=== PATIENT | male | born 1985 | race Caucasian/White ===

== ENCOUNTER 2016-07-02 02:12 | Inpatient (IN) | payer OTHER ==
[~2016-07-02] VITALS: Ht 177.8 cm; Wt 87.5 kg
[2016-07-02 03:28] LABS: CALCIUM 8.1 mg/dL (8.5-10.1); CARBON DIOXIDE 14.1 mmol/L (21-32); CHLORIDE SERUM 101 mmol/L (98-107); CREATININE SERUM 1.2 mg/dL (0.7-1.3); GFR1 > 60 mL/min; GLUCOSE SERUM 140 mg/dL (74-106); POTASSIUM SERUM 3.1 mmol/L (3.5-5.1); SODIUM SERUM 140 mmol/L (136-145)
[2016-07-02 03:32] LABS: ALBUMIN 3.6 g/dL (3.4-5.0); ALKALINE PHOSPHATASE 103 U/L (46-116); ALT/SGPT 95 U/L (16-63); AST/SGOT 178 U/L (15-37); BILIRUBIN TOTAL 1.1 mg/dL (0.20-1.00); MAGNESIUM 1.8 mg/dL (1.8-2.4); TOTAL PROTEIN, SERUM 6.9 g/dL (6.4-8.2)
[2016-07-02 03:53] LABS: BASOPHIL % 1.8 % (0-2); PLATELET COUNT 208 x10^3mcL (130-400); RED CELL DISTRIBUTION WIDTH 12.4 % (11.5-14.5)
[2016-07-02 04:43] LABS: AMPHETAMINE QUAL UR NONE DETECTED (NEG <=1000)
[2016-07-02 07:08] LABS: FREE THYROXINE INDEX 2.4 ug/dL (1.4-4.5); T4(THYROXINE) 6.8 ug/dL (4.7-13.3)
[2016-07-02 07:13] VITALS: BP 130/86
[2016-07-02 07:31] LABS: T3 TOTAL 1.26 ng/mL
[2016-07-02 07:52] LABS: CHOLESTEROL/HDL RATIO 1.9
[2016-07-02 07:54] LABS: microscopic required? YES; urine erythrocyte TRACE (NEGATIVE)
[2016-07-02 07:55] LABS: FREE T4 0.85 ng/dL (0.76-1.46)
[2016-07-02 10:31] LABS: PLATELET COUNT 149 x10^3mcL (130-400); RED CELL DISTRIBUTION WIDTH 13.5 % (11.5-14.5)
[2016-07-02 10:40] VITALS: BP 108/64
[2016-07-02 11:26] LABS: CALCIUM 8.1 mg/dL (8.5-10.1); CARBON DIOXIDE 24.7 mmol/L (21-32); CHLORIDE SERUM 105 mmol/L (98-107); CREATININE SERUM 0.9 mg/dL (0.7-1.3); GFR1 > 60 mL/min; GLUCOSE SERUM 97 mg/dL (74-106); MAGNESIUM 1.7 mg/dL (1.8-2.4); PHOSPHOROUS 2.5 mg/dL (2.5-4.9); POTASSIUM SERUM 3.3 mmol/L (3.5-5.1); SODIUM SERUM 139 mmol/L (136-145)
[2016-07-02 13:20] VITALS: BP 108/72
[2016-07-02 18:39] VITALS: BP 119/84
[2016-07-02 21:20] VITALS: BP 130/90
[2016-07-03 05:17] VITALS: BP 122/88
[2016-07-03 07:12] LABS: BASOPHIL % 0.5 % (0-2); PLATELET COUNT 145 x10^3mcL (130-400); RED CELL DISTRIBUTION WIDTH 13.4 % (11.5-14.5)
[2016-07-03 07:30] LABS: CALCIUM 8.3 mg/dL (8.5-10.1); CARBON DIOXIDE 24.7 mmol/L (21-32); CHLORIDE SERUM 107 mmol/L (98-107); GFR1 > 60 mL/min; GLUCOSE SERUM 82 mg/dL (74-106); MAGNESIUM 2.1 mg/dL (1.8-2.4); PHOSPHOROUS 2.9 mg/dL (2.5-4.9); POTASSIUM SERUM 4.4 mmol/L (3.5-5.1); SODIUM SERUM 141 mmol/L (136-145)
[2016-07-03 09:27] VITALS: BP 126/92
[2016-07-03 10:59] VITALS: Ht 177.8 cm; Wt 87.5 kg
[2016-07-03 13:20] VITALS: BP 114/73
[2016-07-03 17:44] VITALS: BP 130/90
[2016-07-03 21:23] VITALS: BP 127/93
[2016-07-04 07:12] VITALS: BP 126/94
[2016-07-04 07:34] LABS: CALCIUM 8.3 mg/dL (8.5-10.1); CARBON DIOXIDE 24.5 mmol/L (21-32); CHLORIDE SERUM 107 mmol/L (98-107); CREATININE SERUM 0.8 mg/dL (0.7-1.3); GFR1 > 60 mL/min; GLUCOSE SERUM 90 mg/dL (74-106); PHOSPHOROUS 3.2 mg/dL (2.5-4.9); POTASSIUM SERUM 3.5 mmol/L (3.5-5.1); SODIUM SERUM 139 mmol/L (136-145)
[2016-07-04 07:36] LABS: BASOPHIL % 0.7 % (0-2); PLATELET COUNT 185 x10^3mcL (130-400); RED CELL DISTRIBUTION WIDTH 13.1 % (11.5-14.5)
[2016-07-04 09:56] VITALS: BP 119/84
[2016-07-04] MEDS ORDERED: CLINDAMYCIN HC300 MG PO (10:06)
[2016-07-04] MEDS ORDERED: LEVOFLOXACIN500 M1 PO (10:07)
[2016-07-04] MEDS ORDERED: BD LACTINEX1.4 MG PO (10:08)
[2016-07-04] MEDS ORDERED: [UNRECOGNIZED DRUG - OTHER] TOP (10:11)
[2016-07-04] MEDS ORDERED: ATIVAN1 MG PO (10:13)
[2016-07-04 11:47] VITALS: BP 119/84
== END 2016-07-04 12:20 | disposition home or self-care (01) | DRG 115 ==
LOC: ED 02:12 → DU 04:42
PROVIDERS: Emergency Medicine; Family Medicine; ADMIT Family Medicine
PROC: 0HQ0XZZ Repair Scalp Skin, External Approach (ICD-10-PCS; principal; 2016-07-03)
DX: S01.21XA Laceration without foreign body of nose, initial encounter (principal); J69.0 Pneumonitis due to inhalation of food and vomit; E87.6 Hypokalemia; S01.01XA Laceration without foreign body of scalp, initial encounter; F12.10 Cannabis abuse, uncomplicated; F10.20 Alcohol dependence, uncomplicated; E80.6 Other disorders of bilirubin metabolism; Y04.0XXA Assault by unarmed brawl or fight, initial encounter; Y93.89 Activity, other specified; Y92.89 Other specified places as the place of occurrence of the external cause
CPT/HCPCS: 83880; 84439; 90715; G0480; J1953; J2060; J2250; J2405; J2543; J3475; J3480; J3490; J7030; Q0092

== ENCOUNTER 2016-08-03 19:45 | Inpatient (IN) | payer OTHER ==
[~2016-08-03] VITALS: Ht 177.8 cm; Wt 81.6 kg
[~2016-08-03 19:45] MED LIST: ATIVAN1 MG PO; BD LACTINEX1.4 MG PO; CLINDAMYCIN HC300 MG PO; LEVOFLOXACIN500 M1 PO; [UNRECOGNIZED DRUG - OTHER] TOP
[2016-08-03 21:16] LABS: BASOPHIL % 0.6 % (0-2); PLATELET COUNT 166 x10^3mcL (130-400); RED CELL DISTRIBUTION WIDTH 13.8 % (11.5-14.5)
[2016-08-03 21:20] LABS: CALCIUM 7.8 mg/dL (8.5-10.1); CARBON DIOXIDE 24.2 mmol/L (21-32); CHLORIDE SERUM 108 mmol/L (98-107); CREATININE SERUM 0.8 mg/dL (0.7-1.3); GFR1 > 60 mL/min; GLUCOSE SERUM 94 mg/dL (74-106); POTASSIUM SERUM 3.4 mmol/L (3.5-5.1); SODIUM SERUM 143 mmol/L (136-145)
[2016-08-03 21:24] LABS: ALKALINE PHOSPHATASE 71 U/L (46-116); ALT/SGPT 79 U/L (16-63); AST/SGOT 108 U/L (15-37); BILIRUBIN TOTAL 0.43 mg/dL (0.20-1.00); TOTAL PROTEIN, SERUM 6.6 g/dL (6.4-8.2)
[2016-08-03 21:26] LABS: ALBUMIN 3.1 g/dL (3.4-5.0)
[2016-08-03 22:35] LABS: AMPHETAMINE QUAL UR NONE DETECTED (NEG <=1000)
[2016-08-04] VITALS (7 sets, daily range): BP systolic 105–131; BP diastolic 63–91; Ht 177.8 cm; Wt 81.6 kg
[2016-08-04 00:25] LABS: PHOSPHOROUS 3.2 mg/dL (2.5-4.9)
[2016-08-04 00:26] LABS: CHOLESTEROL/HDL RATIO 1.8
[2016-08-04 00:31] LABS: T3 TOTAL 1.28 ng/mL
[2016-08-04 00:35] LABS: FREE T4 1.07 ng/dL (0.76-1.46); FREE THYROXINE INDEX 3.1 ug/dL (1.4-4.5); T4(THYROXINE) 8.7 ug/dL (4.7-13.3)
[2016-08-04 00:43] LABS: microscopic required? NO
[2016-08-04 00:53] LABS: urine erythrocyte NEGATIVE (NEGATIVE)
[2016-08-04 06:41] LABS: CALCIUM 7.3 mg/dL (8.5-10.1); CARBON DIOXIDE 24.7 mmol/L (21-32); CHLORIDE SERUM 109 mmol/L (98-107); CREATININE SERUM 0.8 mg/dL (0.7-1.3); GFR1 > 60 mL/min; GLUCOSE SERUM 77 mg/dL (74-106); MAGNESIUM 1.6 mg/dL (1.8-2.4); PHOSPHOROUS 2.8 mg/dL (2.5-4.9); POTASSIUM SERUM 3.7 mmol/L (3.5-5.1); SODIUM SERUM 142 mmol/L (136-145)
[2016-08-04 06:56] LABS: BASOPHIL % 0.7 % (0-2); PLATELET COUNT 138 x10^3mcL (130-400); RED CELL DISTRIBUTION WIDTH 13.9 % (11.5-14.5)
[2016-08-05 05:23] VITALS: BP 122/85
[2016-08-05 05:24] VITALS: BP 122/85; BP 184/83
[2016-08-05 06:51] LABS: ALBUMIN 2.6 g/dL (3.4-5.0); BILIRUBIN DIRECT 0.31 mg/dL (0.0-0.2); BILIRUBIN TOTAL 0.9 mg/dL (0.20-1.00); MAGNESIUM 1.8 mg/dL (1.8-2.4); TOTAL PROTEIN, SERUM 5.7 g/dL (6.4-8.2)
[2016-08-05 06:57] LABS: BASOPHIL % 0.8 % (0-2); PLATELET COUNT 159 x10^3mcL (130-400); RED CELL DISTRIBUTION WIDTH 13.9 % (11.5-14.5)
[2016-08-05 10:50] VITALS: BP 135/96
[2016-08-05] MEDS ORDERED: FOL1 PO (12:02)
[2016-08-05] MEDS ORDERED: THI100 PO (12:02)
[2016-08-05] MEDS ORDERED: THERA TABS1 TAB PO (12:02)
[2016-08-05] MEDS ORDERED: ATIVAN1 MG PO (12:03)
[2016-08-05 13:20] VITALS: BP 118/79
[2016-08-05 14:37] VITALS: BP 135/96
== END 2016-08-05 15:50 | disposition home or self-care (01) | DRG 775 ==
LOC: ED 19:45 → DU 08-04 00:27
PROVIDERS: Emergency Medicine; Family Medicine; ADMIT Family Medicine
DX: F10.239 Alcohol dependence with withdrawal, unspecified (principal); G92 Toxic encephalopathy; E43 Unspecified severe protein-calorie malnutrition; K85.20 Alcohol induced acute pancreatitis without necrosis or infection; E87.6 Hypokalemia; S20.219A Contusion of unspecified front wall of thorax, initial encounter; D64.9 Anemia, unspecified; F41.1 Generalized anxiety disorder; F10.229 Alcohol dependence with intoxication, unspecified; R74.0 Nonspecific elevation of levels of transaminase and lactic acid dehydrogenase [LDH]; Z68.25 Body mass index [BMI] 25.0-25.9, adult; F34.1 Dysthymic disorder
CPT/HCPCS: 83880; 84439; G0480; J2060; J2270; J3480; J7030; J7050; Q0092